=== PATIENT | male | born 1965 ===

== ENCOUNTER 2019-11-26 20:53 | Emergency (ER) | payer BC ==
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
[2019-11-26] MEDS ORDERED: Diphtheria,Pertussis(Acell),Tetanus Vaccine 0.5 ML SDV IM ONE (22:13)
[2019-11-26] MEDS ORDERED: Ibuprofen 800 MG Tab PO ONE (22:14)
== END 2019-11-26 23:30 | disposition home or self-care (01) ==
LOC: FB.ED 20:53
DX: S06.0X1A Concussion with loss of consciousness of 30 minutes or less, initial encounter (principal); S13.9XXA Sprain of joints and ligaments of unspecified parts of neck, initial encounter; S00.81XA Abrasion of other part of head, initial encounter; M47.812 Spondylosis without myelopathy or radiculopathy, cervical region; E03.9 Hypothyroidism, unspecified; E66.9 Obesity, unspecified; Z68.31 Body mass index [BMI] 31.0-31.9, adult; Z23 Encounter for immunization; V86.59XA Driver of other special all-terrain or other off-road motor vehicle injured in nontraffic accident, initial encounter
CPT/HCPCS: 72125; 90471; 90715; 99283; A9270

== ENCOUNTER 2023-10-24 21:22 | Emergency (ER) | payer BC ==
[2023-10-24] MEDS ORDERED: Naloxone 0.4 MG/ML SDV IVPUSH PRN (21:31)
[2023-10-24] MEDS: Sodium Chloride 0.9% 1,000 ML IV ONE (21:35)
[2023-10-24] MEDS: HYDROmorphone 2 MG/ML SDV IVPUSH ONE (21:35)
[2023-10-24] MEDS: Ketorolac 30 MG/ML SDV IVPUSH ONE (22:00)
[2023-10-24] MEDS ORDERED: Sodium Chloride 0.9% 10 ML SDV IV SCH (22:15)
[2023-10-24] MEDS ORDERED: Sodium Chloride 0.9% 150 ML Bag IV PRN (22:30)
== END 2023-10-24 23:00 ==
LOC: FB.ED 21:22
DX: T20.06XA Burn of unspecified degree of forehead and cheek, initial encounter (principal); T22.011A Burn of unspecified degree of right forearm, initial encounter; T24.031A Burn of unspecified degree of right lower leg, initial encounter; T31.10 Burns involving 10-19% of body surface with 0% to 9% third degree burns; E03.9 Hypothyroidism, unspecified; Z68.33 Body mass index [BMI] 33.0-33.9, adult; E66.9 Obesity, unspecified; X04.XXXA Exposure to ignition of highly flammable material, initial encounter
CPT/HCPCS: 96361; 96374; 96375; 99284; J1170; J1885; J7030; 99285